=== PATIENT | male | born 1960 | race Caucasian/White ===

== ENCOUNTER 2018-10-07 00:59 | Emergency (ER) | payer BC, OTHER ==
[2018-10-07 01:29] LABS: #Eosinphils 0.2 thou/uL (0.0-0.7); #Lymphocytes 1.4 thou/uL (1.20-3.40); #Monocytes 0.3 thou/uL (0.11-0.59); #Neutrophils 2.8 thou/uL (1.40-6.50); %Basophils 0.8 % (0.0-1.0); %Eosinophils 3.9 % (0.0-10.0); %Lymphocytes 29.1 % (21.0-51.0); %Monocytes 6.4 % (0.0-10.0); %Neutrophils 59.8 % (42.0-75.0); Hemoglobin 14.4 g/dL (14.0-18.0); Mean Corpuscular HGB CONC 35.1 g/dL (32.0-36.0); Mean Corpuscular Hemoglobin 30.5 pg (27.0-31.0); Mean Corpuscular Volume 86.9 fL (78.0-98.0); Mean Platelet Volume 6.7 fL (7.4-10.4); Platelet Count 172 thou/uL (130-400); RBC Distribution Width 12.4 % (11.5-14.5); Red Blood Cell (RBC) Count 4.73 mill/uL (4.70-6.10); White Blood Cell (WBC) Count 4.6 thou/uL (4.8-10.8)
[2018-10-07 01:51] LABS: ALT (SGPT) 41 U/L (8-55); AST (SGOT) 30 U/L (5-34); Albumin 4.5 g/dL (3.5-5.0); Alkaline Phosphatase 48 U/L (40-150); Anion Gap 13 mmol/L (10-20); BUN (Urea Nitrogen) 12 mg/dL (8.4-25.7); Bilirubin, Total 0.5 mg/dL (0.2-1.2); Calc. Creatinine Clearance 0 mL/min (70-130); Calcium 9.9 mg/dL (7.8-10.44); Carbon Dioxide 29 mmol/L (22-29); Chloride 104 mmol/L (98-107); Estimated GFR-MDRD Greater than 90; Globulin 2.7 g/dL (2.4-3.5); Glucose 128 mg/dL (70-105); Lipase 29 U/L (8-78); Potassium 3.7 mmol/L (3.5-5.1); Protein, Total 7.2 g/dL (6.0-8.3); Sodium 142 mmol/L (136-145)
[2018-10-07] MEDS ORDERED: Ketorolac Tromethamine 30 MG/ML VIAL ONE (03:16)
[2018-10-07] MEDS ORDERED: Morphine 4 MG/ML VIAL ONE (03:16)
--- NOTE | 2018-10-07 09:17 | ULT ---
PRELIMINARY REPORT: US Abdomen Limited, Right Upper Quadrant EXAM DATE/TIME: 10/07/2018 3:28 AM CLINICAL HISTORY: 58 years old, male; Other: Epigastric pain TECHNIQUE: Imaging protocol: Real-time ultrasound of the abdomen with image documentation. Examination was focused on the right upper quadrant. COMPARISON: No relevant prior studies available. FINDINGS: Liver: Hepatic steatosis. Gallbladder: Gallstone at the neck of the gallbladder. Gallbladder sludge. No gallbladder wall thickening or pericholecystic fluid. Sonographic Edmonds sign reported as "negative but patient medicated." Common bile duct: Normal. No stones. No dilation. Pancreas: Visualized pancreas is unremarkable. Right kidney: Normal. No mass. No hydronephrosis. IMPRESSION: Cholelithiasis and gallbladder sludge. No evidence of cholecystitis. Thank you for allowing us to participate in the care of your patient. Dictated and Authenticated by: Ernesto Becker MD 10/07/2018 4:08 AM Central Time ([place] & [place]) FINAL REPORT Fibrofatty changes seen in the liver. The gallbladder contains echogenic foci as well as a area of hyperechogenicity in the gallbladder nec k compatible with gallstones. The gallbladder wall is not significantly thickened. No evidence of pericholecystic fluid seen. Common bile duct is of normal size measuring 4 mm. No evidence of intrahepatic biliary dilatation seen. The right kidney is unremarkable. Visualized portions of the pancreas unremarkable. IMPRESSION: Cholelithiasis. QA Transcribed Date/Time: 10/07/2018 4:15 PM
== END 2018-10-07 05:09 | disposition home or self-care (01) ==
LOC: ERS 00:59
DX: K80.20 Calculus of gallbladder without cholecystitis without obstruction (principal); I10 Essential (primary) hypertension
CPT/HCPCS: 36415; 76705; 80053; 83690; 85025; 93005; 96372; 96374; 96375; J0500; J1885; J2270

== ENCOUNTER 2018-10-18 15:11 | Outpatient (CLI) | payer OTHER ==
[2018-10-18 16:41] LABS: #Basophils 0.1 thou/uL (0.0-0.2); #Eosinphils 0.3 thou/uL (0.0-0.7); #Lymphocytes 1.8 thou/uL (1.20-3.40); #Monocytes 0.5 thou/uL (0.11-0.59); %Basophils 1.4 % (0.0-1.0); %Eosinophils 4.8 % (0.0-10.0); %Lymphocytes 32.5 % (21.0-51.0); %Monocytes 8.1 % (0.0-10.0); %Neutrophils 53.2 % (42.0-75.0); Hemoglobin 14.4 g/dL (14.0-18.0); Mean Corpuscular HGB CONC 34.7 g/dL (32.0-36.0); Mean Corpuscular Hemoglobin 30.4 pg (27.0-31.0); Mean Corpuscular Volume 87.6 fL (78.0-98.0); Mean Platelet Volume 7.1 fL (7.4-10.4); Platelet Count 276 thou/uL (130-400); RBC Distribution Width 11.9 % (11.5-14.5); Red Blood Cell (RBC) Count 4.73 mill/uL (4.70-6.10); White Blood Cell (WBC) Count 5.5 thou/uL (4.8-10.8)
[2018-10-18 17:04] LABS: ALT (SGPT) 25 U/L (8-55); AST (SGOT) 18 U/L (5-34); Albumin 4.2 g/dL (3.5-5.0); Alkaline Phosphatase 63 U/L (40-150); Anion Gap 12 mmol/L (10-20); BUN (Urea Nitrogen) 12 mg/dL (8.4-25.7); Bilirubin, Total 0.6 mg/dL (0.2-1.2); Calc. Creatinine Clearance 0 mL/min (70-130); Calcium 9.7 mg/dL (7.8-10.44); Carbon Dioxide 28 mmol/L (22-29); Chloride 104 mmol/L (98-107); Estimated GFR-MDRD Greater than 90; Globulin 2.8 g/dL (2.4-3.5); Glucose 96 mg/dL (70-105); Potassium 3.7 mmol/L (3.5-5.1); Sodium 140 mmol/L (136-145)
== END 2018-10-18 15:12 | disposition home or self-care (01) ==
LOC: LABBT 15:11
PROVIDERS: ATTEND Surgery
DX: Z01.812 Encounter for preprocedural laboratory examination (principal); K80.20 Calculus of gallbladder without cholecystitis without obstruction
CPT/HCPCS: 80053; 85025

== ENCOUNTER 2018-10-23 10:00 | Day surgery (SDC) | payer OTHER ==
[2018-10-18 15:36] VITALS: BMI 31.1
[2018-10-23] MEDS ORDERED: Bupivacaine/Epinephrine 0.25% 30 ML VIAL ONE (12:35)
[2018-10-23] MEDS ORDERED: Fentanyl 100 MCG/2 ML VIAL ONE (13:08)
[2018-10-23] MEDS ORDERED: Midazolam HCl 2 mg/2 ml Vial ONE (13:27)
[2018-10-23] MEDS ORDERED: Rocuronium Bromide 10 MG/ML (10ML VIAL) ONE (13:29)
[2018-10-23] MEDS ORDERED: Ketorolac Tromethamine 30 MG/ML VIAL ONE (13:29)
[2018-10-23] MEDS ORDERED: Glycopyrrolate 0.2 MG/ML 5 ML SYRINGE ONE (13:29)
[2018-10-23] MEDS ORDERED: Ondansetron PF 4 MG/2 ML Vial ONE (13:29)
[2018-10-23] MEDS ORDERED: PROPOFOL 200 MG/20 ML VIAL ONE (13:29)
[2018-10-23] MEDS ORDERED: Dexamethasone 20 MG/5 ML VIAL ONE (13:29)
[2018-10-23] MEDS ORDERED: Lidocaine 1% PF 5 ML VIAL ONE (13:29)
[2018-10-23] MEDS ORDERED: ePHEDrine 50 MG/ML VIAL ONE (13:29)
--- NOTE | 2018-10-24 12:07 | OP ---
DATE OF PROCEDURE: 10/23/2018 PROCEDURES: Laparoscopic cholecystectomy and repair of umbilical hernia. PREOPERATIVE DIAGNOSES: 1. Cholelithiasis. 2. Cholecystitis. 3. Umbilical hernia. POSTOPERATIVE DIAGNOSES: 1. Cholelithiasis. 2. Cholecystitis. 3. Umbilical hernia. FINDINGS: Very inflamed, thickened, necrotic gallbladder with extensive omental adhesions; small, less than 1 cm umbilical hernia containing preperitoneal fat. HISTORY: Mr. Lacy is a 58-year-old man, recently diagnosed with gallstones. Recommendation was made to proceed with laparoscopic cholecystectomy for symptomatic relief. He was incidentally noted to have a small reducible umbilical hernia and was recommended that this DESCRIPTION OF PROCEDURE: After informed consent was obtained, appropriate preoperative antibiotics were administered, the patient was taken to the operating room where he was placed in supine position and general endotracheal anesthesia was administered. He was prepped and draped in a standard sterile fashion and local anesthesia was infused through the skin and subcutaneous tissues at the level of the umbilicus. A skin incision was made and dissection was carried down to the fascial defect which was less than a finger tip in size. The fascia was elevated and Veress needle was placed through the defect and carbon dioxide gas was insufflated to an intraabdominal pressure of 15 mmHg, which the patient tolerated well. The Veress needle was then withdrawn and a 5 mm port was placed through the fascial defect using a ClearView port under direct laparoscopic vision, intraabdominal contents were carefully examined. There was no evidence of trocar or Veress needle injury. The gallbladder was local anesthesia was infused through the skin and subcutaneous tissues of the epigastric, right upper quadrant, and right lateral abdominal site. Skin incisions were made and trocars were placed under direct laparoscopic vision. The omentum was dissected down off the gallbladder through the avascular plane using careful electrocautery. The edge of the transverse colon was identified and care was taken not use any electrocautery in this region. The fundus was able to be exposed, identified, grasped, and retracted superiorly. The remainder of the omentum was stripped downward and the infundibulum identified, grasped and retracted laterally. The serosa was stripped inferiorly at the level of the neck of the gallbladder with some difficulty due to severe fibrosis at this level. The cystic duct and artery were able to be identified, dissected free circumferentially and traced to their insertion in the gallbladder. Critical view of safety was obtained and the duct and artery were clipped and divided between clips. The gallbladder was then dissected free of the gallbladder bed using hook electrocautery, again with moderate to severe difficulty due to the fibrosis in the gallbladder wall. At several points, the was off the gallbladder bed, but bleeding from the gallbladder was able to easily controlled with electrocautery. The gallbladder was then completely removed from the gallbladder bed, placed into an EndoCatch bag, and drawn out through the epigastric incision, which did require elevation of the fascia and extension of the skin secondary to severe edema and fibrosis in the thickened gallbladder wall. The epigastric trocar was then replaced and the operative site was easily irrigated to clear. Hemostasis was verified and was subsequently deemed to be in good position. The epigastric trocar was removed and the fascial incision closed with 0 Vicryl suture on GraNee needle with excellent technical result. This suture, however, was not tied down; rather it was secured and the epigastric trocar replaced. The umbilical trocar was then removed, and the fascial defect closed under direct vision with 0 Vicryl suture on a GraNee needle under direct vision. Following this, the right upper quadrant and right lateral trocars removed, and hemostasis verified at those sites. The epigastric trocar was then used to desufflate the abdomen following which the specimen was removed and both the umbilical and epigastric fascial sutures were secured. Additional local anesthesia was infused for postoperative pain control. The skin incision was closed with 4-0 subcuticular Monocryl suture. ESTIMATED BLOOD LOSS: Minimal. COMPLICATIONS: There were no complications. SPECIMEN: Gallbladder and contents. Job ID: [id number]
== END 2018-10-23 17:43 | disposition home or self-care (01) ==
LOC: SDC 10:00
PROVIDERS: ATTEND Surgery
PROC: 0FT44ZZ Resection of Gallbladder, Percutaneous Endoscopic Approach (ICD-10-PCS; principal; 2018-10-23)
PROC: 0WQF0ZZ Repair Abdominal Wall, Open Approach (ICD-10-PCS; principal; 2018-10-23)
DX: K80.00 Calculus of gallbladder with acute cholecystitis without obstruction (principal); K82.8 Other specified diseases of gallbladder; K42.9 Umbilical hernia without obstruction or gangrene; I10 Essential (primary) hypertension; Z79.899 Other long term (current) drug therapy
CPT/HCPCS: 88304; J0690; J1100; J1885; J2001; J2250; J2405; J2704; J3010; J3490

== ENCOUNTER 2020-02-15 14:51 | Inpatient (IN) | payer OTHER ==
--- NOTE | 2020-02-15 15:17 | RAD ---
PORTABLE CHEST: 02/15/20 HISTORY: Chest pain. Lungs are clear. No infiltrate or vascular congestion. Heart size is normal. IMPRESSION: No acute process. POS: AGW
[2020-02-15 15:22] LABS: #Basophils 0.1 thou/uL (0.0-0.2); #Eosinphils 0.2 thou/uL (0.0-0.7); #Lymphocytes 1.1 thou/uL (1.20-3.40); #Monocytes 0.4 thou/uL (0.11-0.59); #Neutrophils 3.1 thou/uL (1.40-6.50); %Basophils 1.1 % (0.0-1.0); %Eosinophils 3.6 % (0.0-10.0); %Lymphocytes 22.4 % (21.0-51.0); Hemoglobin 15.9 g/dL (14.0-18.0); Mean Corpuscular HGB CONC 35.2 g/dL (32.0-36.0); Mean Corpuscular Hemoglobin 31.2 pg (27.0-31.0); Mean Corpuscular Volume 88.7 fL (78.0-98.0); Platelet Count 162 thou/uL (130-400); RBC Distribution Width 12.7 % (11.5-14.5); Red Blood Cell (RBC) Count 5.08 mill/uL (4.70-6.10); White Blood Cell (WBC) Count 4.9 thou/uL (4.8-10.8)
[2020-02-15] MEDS ORDERED: Aspirin Chewable 81 MG TAB ONE (15:33)
[2020-02-15] MEDS ORDERED: Nitroglycerin 2% Ointment 1 INCH/1 GM Packet ONE (15:33)
[2020-02-15 15:36] LABS: ALT (SGPT) 30 U/L (8-55); AST (SGOT) 27 U/L (5-34); Albumin 4.5 g/dL (3.5-5.0); Alkaline Phosphatase 49 U/L (40-110); Anion Gap 15 mmol/L (10-20); BUN (Urea Nitrogen) 13 mg/dL (8.4-25.7); Bilirubin, Total 0.7 mg/dL (0.2-1.2); CK (CPK) 289 U/L (30-200); Calc. Creatinine Clearance 0 mL/min (70-130); Calcium 9.3 mg/dL (7.8-10.44); Carbon Dioxide 24 mmol/L (22-29); Chloride 106 mmol/L (98-107); Estimated GFR-MDRD Greater than 90; Globulin 2.7 g/dL (2.4-3.5); Glucose 118 mg/dL (70-105); Lipase 54 U/L (8-78); Potassium 3.6 mmol/L (3.5-5.1); Protein, Total 7.2 g/dL (6.0-8.3); Sodium 141 mmol/L (136-145)
[2020-02-15 16:15] LABS: CKMB 16.9 ng/mL (0-6.6)
--- NOTE | 2020-02-15 16:24 | PDOC.HHP ---
Hospitalist HPI - History of Present Illness Chest pain History of Present Illness: Is a 59-year-old male patient you have a history of hypertension who presents today with complaints of chest pain for the past 2 to 3 days. Pain is intermittent, described as heaviness about 5/10 in intensity and usually occurs with meals. Rarely associated if activity. He has associated diaphoresis however no nausea. Pain appears to radiate to his right but not to his back. He has a history of hypertension for which he is on olmesartan. He does not smoke but however dips tobacco and has no family history of early OH. Also no history of diabetes mellitus. He denies any recent upper respiratory symptoms, no recent long distance travel or sedentary lifestyle of personal or family history of thrombosis. He also denies any recent history of chest trauma Today the pain became increasingly worse leading him to come to the ED. On presentation he was started on aspirin and was about to be given nitroglycerin however his pain subsided and this was held. Initial troponin was 0.24, EKG showed ST segment depressions in V2 V3, chest x- ray was unremarkable Hospitalist team was consulted to admit. Hospitalist ROS - Review of Systems Constitutional: denies: fever, chills, sweats, weakness Respiratory: denies: cough, dry, shortness of breath, hemoptysis, SOB with excertion Cardiovascular: denies: palpitations, orthopnea, paroxysmal noc. dyspnea, edema Gastrointestinal: denies: nausea, vomiting, abdominal pain, diarrhea Genitourinary: denies: dysuria, frequency, incontinence, hematuria Neurological: denies: weakness, numbness, incoordination, change in speech Hospitalist History - Past Medical History Cardiac: reports: HTN Other Medical History: Medications: Benicar HCTolmesartan tablet : Strength - 40 mg-12.5 mg : ORAL Patient Dose: 40 mg Oral once a day. Allergies: No known allergies - Past Surgical History Other Surgical History: None - Family History Family History: reports: diabetes mellitus, hypertension - Social History Smoking Status: Former smoker (Currently dips tobacco) Tobacco Type: chewing tobacco Alcohol: reports: None Drugs: reports: none Living Situation: With Family Activity level: independent ambulation - Exam General - other findings: Patient awake and alert. In no distress. Neck - other findings: No JVD, no lymphadenopathy Heart - other findings: S1-S2 present. No murmurs gallops or rubs. Respiratory - other findings: Air entry adequate bilaterally, no wheezes rhonchi or rales. Gastrointestinal - other findings: Full, soft, bowel sounds present and normal. Nontender nondistended Extremities - other findings: No edema no cyanosis Neurological: cranial nerve grossly intact, no new deficit Hospitalist Results - Labs Result Diagrams: 02/15/20 18:35 02/15/20 15:00 Lab results: WBC 4.9 thou/uL (4.8-10.8) 02/15/20 15:00 Hgb 15.9 g/dL (14.0-18.0) 02/15/20 15:00 Hct 45.1 % (42.0-52.0) 02/15/20 15:00 MCV 88.7 fL (78.0-98.0) 02/15/20 15:00 Plt Count 162 thou/uL (130-400) 02/15/20 15:00 Neutrophils % 64.0 % (42.0-75.0) 02/15/20 15:00 Sodium 141 mmol/L (136-145) 02/15/20 15:00 Potassium 3.6 mmol/L (3.5-5.1) 02/15/20 15:00 Chloride 106 mmol/L (98-107) 02/15/20 15:00 Carbon Dioxide 24 mmol/L (22-29) 02/15/20 15:00 BUN 13 mg/dL (8.4-25.7) 02/15/20 15:00 Creatinine 0.84 mg/dL (0.7-1.3) 02/15/20 15:00 Glucose 118 mg/dL (70-105) H 02/15/20 15:00 Calcium 9.3 mg/dL (7.8-10.44) 02/15/20 15:00 Total Bilirubin 0.7 mg/dL (0.2-1.2) 02/15/20 15:00 AST 27 U/L (5-34) 02/15/20 15:00 ALT 30 U/L (8-55) 02/15/20 15:00 Alkaline Phosphatase 49 U/L (40-110) 02/15/20 15:00 Creatine Kinase 289 U/L (30-200) H 02/15/20 15:00 CK-MB (CK-2) 16.9 ng/mL (0-6.6) H* 02/15/20 15:00 Troponin I 0.247 ng/mL (< 0.028) H 02/15/20 15:00 Serum Total Protein 7.2 g/dL (6.0-8.3) 02/15/20 15:00 Albumin 4.5 g/dL (3.5-5.0) 02/15/20 15:00 Lipase 54 U/L (8-78) 02/15/20 15:00 Hospitalist H&P A/P - Plan Plan: This is a 59-year-old male patient with a history of hypertension who presents with chest pain of 2 to 3 days duration. Troponin is elevated and ST changes concerning for ACS We will admit him for observation on telemetry unit and await cardiology evaluation NSTEMI Received aspirin in EDwe will continue PRN nitroglycerin Start Lovenox 1 mg/kg every 12 Trend troponin Consult cardiology. Hypertension Resume home olmesartan once verified. Tobacco abuse Consider nicotine patch if show signs of withdrawal DVT prophylaxistherapeutic on Lovenox Dispositionpending cardiology evaluation
[2020-02-15] MEDS ORDERED: Nitroglycerin 0.4 MG TAB (25 Tab Bottle) PO PRN (17:03)
[2020-02-15] MEDS ORDERED: Heparin 25,000 units/D5W 500 ML IVPB SCH (17:15)
[2020-02-15] MEDS ORDERED: Heparin 10,000 UNITS/ 10 ML VIAL SLOW IVP SCH (17:15)
[2020-02-15 17:38] VITALS: BMI 32.5
[2020-02-15 18:49] LABS: Hemoglobin 15.1 g/dL (14.0-18.0); Platelet Count 176 thou/uL (130-400)
[2020-02-15 19:21] LABS: Troponin I 0.362 ng/mL (< 0.028)
[2020-02-15 19:27] LABS: Hemoglobin A1c 4.9 % (4.0-6.0)
[2020-02-15] MEDS: Nicotine 14 MG PATCH TD SCH (19:43)
[2020-02-15] MEDS: Enoxaparin Sodium 100 MG/ML SYRINGE SC SCH (19:47)
[2020-02-15] MEDS: Nitroglycerin 2% Ointment 1 INCH/1 GM Packet TOP SCH (19:47)
[2020-02-15] MEDS: Rosuvastatin 20 MG TAB PO SCH (19:58)
[2020-02-15 21:43] LABS: Troponin I 0.579 ng/mL (< 0.028)
[2020-02-16 05:20] LABS: #Basophils 0.1 thou/uL (0.0-0.2); #Eosinphils 0.3 thou/uL (0.0-0.7); #Monocytes 0.5 thou/uL (0.11-0.59); #Neutrophils 3.3 thou/uL (1.40-6.50); %Basophils 0.9 % (0.0-1.0); %Eosinophils 4.4 % (0.0-10.0); %Lymphocytes 32.8 % (21.0-51.0); %Monocytes 8.6 % (0.0-10.0); %Neutrophils 53.3 % (42.0-75.0); Hemoglobin 14.4 g/dL (14.0-18.0); Mean Corpuscular HGB CONC 34.4 g/dL (32.0-36.0); Mean Corpuscular Hemoglobin 30.5 pg (27.0-31.0); Mean Corpuscular Volume 88.5 fL (78.0-98.0); Mean Platelet Volume 7.2 fL (7.4-10.4); Platelet Count 161 thou/uL (130-400); RBC Distribution Width 12.6 % (11.5-14.5); Red Blood Cell (RBC) Count 4.74 mill/uL (4.70-6.10); White Blood Cell (WBC) Count 6.1 thou/uL (4.8-10.8)
[2020-02-16 05:44] LABS: Anion Gap 13 mmol/L (10-20); BUN (Urea Nitrogen) 13 mg/dL (8.4-25.7); Calc. Creatinine Clearance 175 mL/min (70-130); Calcium 8.7 mg/dL (7.8-10.44); Carbon Dioxide 24 mmol/L (22-29); Cardiac Risk 5.5 (Less than 4.5); Chloride 107 mmol/L (98-107); Cholesterol 175 mg/dl (< 200 Desired); Estimated GFR-MDRD Greater than 90; Glucose 114 mg/dL (70-105); HDL Cholesterol 32 mg/dL (>60 Neg Risk); LDL Cholesterol, Calculated 96 mg/dL; Potassium 3.6 mmol/L (3.5-5.1); Sodium 140 mmol/L (136-145); Triglycerides 236 mg/dL (Less than 150)
[2020-02-16] MEDS: Nitroglycerin 2% Ointment 1 INCH/1 GM Packet TOP SCH ×3 (06:19→20:56)
[2020-02-16 07:07] LABS: Troponin I 0.877 ng/mL (< 0.028)
[2020-02-16] MEDS: Enoxaparin Sodium 100 MG/ML SYRINGE SC SCH ×2 (07:56→20:54)
[2020-02-16] MEDS: Aspirin Chewable 81 MG TAB PO SCH (07:57)
[2020-02-16] MEDS ORDERED: Olmesartan 5 MG TAB PO SCH (09:00)
[2020-02-16] MEDS ORDERED: Communication Order-Pharmacy FS SCH (09:00)
--- NOTE | 2020-02-16 09:57 | CON ---
DATE OF CONSULTATION: 02/16/2020 REASON FOR CONSULTATION: [id number] myocardial infarction. HISTORY OF PRESENT ILLNESS: Regino is a very pleasant 59-year-old gentleman. The patient has been having lower substernal chest pain. The patient's pain began 2 days prior to admission, but it is relatively mild. Yesterday, he had an episode in the morning and then later in the afternoon. He came to the hospital, found to have slightly increased troponin levels. He has been given enoxaparin, aspirin, and nitrates, so he had very minimal discomfort early this morning. Otherwise, he has been feeling much better. He is asymptomatic now. No previous cardiac history. The patient does not smoke. He does chew tobacco. ALLERGIES: NONE KNOWN. SOCIAL HISTORY: As outlined above. REVIEW OF SYSTEMS: CONSTITUTIONAL: No significant weight gain. No loss of vision. No changes in hearing. PULMONARY: No cough or wheezing. GASTROINTESTINAL: No nausea, vomiting, or diarrhea. SKIN: No rashes. NEUROLOGIC: No unilateral weakness or numbness. PSYCHIATRIC: No unusual depression or anxiety. HEMATOLOGIC: No unusual bruising. MEDICATIONS: At home, he takes olmesartan/hydrochlorothiazide. PHYSICAL EXAMINATION: GENERAL: This is a 59-year-old man, in no distress, resting comfortably. No chest pain. VITAL SIGNS: Blood pressure 149/78, pulse 56 and regular. HEENT: Eyes; sclerae nonicteric. Mouth; mucous membranes moist. NECK: Supple. No lymphadenopathy. LUNGS: Clear. CARDIAC: Normal S1, normal S2. There is no murmur, rub, or gallop. ABDOMEN: Soft and nontender. No hepatosplenomegaly. EXTREMITIES: Warm, dry. No clubbing or cyanosis. No edema. Good dorsalis pedis pulses bilaterally. LABORATORY DATA: EKG, normal sinus rhythm, some very minimal nonspecific changes in lead II and aVF. Cardiac enzymes, the peak troponin 0.877. LDL cholesterol was 96. ASSESSMENT: 1. Status post [id number] myocardial infarction. 2. Tobacco use. 3. Hyperlipidemia with increased triglycerides and LDL cholesterol of 96, suspect the LDL was probably higher the day before he did receive one dose of statins. 4. Hypertension. PLAN: Proceed to cardiac catheterization tomorrow. Discussed risks of stroke, heart attack, iodine allergy, loss of blood supply to leg or kidney, stent thrombosis, stent restenosis, life-threatening problem such as vessel perforation in the heart arteries. The patient understands and wishes to proceed. Job ID: [id number]
[2020-02-16] MEDS: Losartan 25 MG TAB PO SCH (10:17)
[2020-02-16 12:44] LABS: SARS-CoV-2 MS2 Positive; SARS-CoV-2 N Gene Negative; SARS-CoV-2 S Gene Negative; SARS-CoV-2 by NAA Not Detected (NotDetected); SARS-CoV-2 orf1ab Negative
[2020-02-16] MEDS: Nicotine 14 MG PATCH TD SCH (18:50)
[2020-02-16] MEDS: Rosuvastatin 20 MG TAB PO SCH (20:55)
--- NOTE | 2020-02-16 21:38 | PDOC.HOSPP ---
- Subjective Encounter Date: 02/16/20 Encounter Time: 11:00 Subjective: Patient was seen and examined in bed. He denies any chest pain or shortness of breath. No acute events overnight. - Objective Vital Signs & Weight: Vital Signs (12 hours) Temp Pulse Resp BP BP Pulse Ox 02/16/20 19:30 97.4 F L 54 L 20 166/83 H 97 02/16/20 15:32 98.5 F 56 L 20 143/71 H 97 02/16/20 11:45 97.8 F 68 16 145/73 H 97 Weight Weight 240 lb 1.6 oz I&O: 02/15/20 02/16/20 02/17/20 06:59 06:59 06:59 Intake Total 900 1080 Balance 900 1080 Result Diagrams: 02/16/20 04:44 02/16/20 04:44 Hospitalist ROS - Medication Medications: Active Medications Generic Name Dose Route Start Last Admin Trade Name Freq PRN Reason Stop Dose Admin Aspirin 81 mg 02/16/20 09:00 02/16/20 07:57 Aspirin Chewable PO 81 mg DAILY CULLEN Administration Enoxaparin Sodium 100 mg 02/15/20 21:00 02/16/20 20:54 Lovenox SC 100 mg 0900,2100 CULLEN Administration Losartan Potassium 50 mg 02/16/20 09:00 02/16/20 10:17 Cozaar PO 50 mg DAILY CULLEN Administration Nicotine 14 mg 02/15/20 18:00 02/16/20 18:50 Nicoderm Patch TD Not Given 1800 CULLEN Nitroglycerin 0.5 inch 02/15/20 22:00 02/16/20 20:56 Nitro-Bid 2% Ointment TOP 0.5 inch Q8HR CULLEN Administration Rosuvastatin Calcium 40 mg 02/15/20 21:00 02/16/20 20:55 Crestor PO 40 mg HS CULLEN Administration - Exam General - other findings: Patient is in bed. No acute distress. Heart - other findings: S1-S2 present and normal. No murmurs gallops or rubs. Respiratory - other findings: Air entry adequate bilaterally Gastrointestinal - other findings: Grossly benign Extremities: no edema Hosp A/P - Plan This is a 59-year-old man with a history of hypertension mated on account of NSTEMI. He has been stable and comfortable overnight on therapeutic dose of Lovenox. Cardiology followingplan for cardiac catheterization tomorrow. NSTEMI Possible cath tomorrow. Convert from outpatient inpatient. Continue monitoring. Hypertension Blood pressure stable We will continue monitoring. Tobacco abuse Continue monitoring. Next VTE prophylaxistherapeutic Lovenox
[2020-02-17] MEDS: Nitroglycerin 2% Ointment 1 INCH/1 GM Packet TOP SCH (05:55)
[2020-02-17] MEDS ORDERED: Sodium Chloride 0.9% 1,000 ML IV SCH (06:00)
[2020-02-17] MEDS ORDERED: Diazepam 5 MG TAB PO SCH (06:00)
[2020-02-17] MEDS: Losartan 25 MG TAB PO SCH (06:06)
[2020-02-17] MEDS: Aspirin Chewable 81 MG TAB PO SCH (06:06)
[2020-02-17] MEDS ORDERED: Nitroglycerin 100MG/250ML BOT 0 ML ONE (06:34)
[2020-02-17] MEDS ORDERED: Midazolam HCl 2 mg/2 ml Vial ONE (07:36)
[2020-02-17] MEDS ORDERED: Nitroglycerin 4.9 GM Bottle ONE (07:52)
[2020-02-17] MEDS: Enoxaparin Sodium 100 MG/ML SYRINGE SC SCH (07:59)
[2020-02-17] MEDS ORDERED: Nitroglycerin 0.4 MG TAB (25 Tab Bottle) SL PRN (08:16)
[2020-02-17] MEDS ORDERED: Acetaminophen/Codeine 30-300mg Tablet PO PRN ×2 (08:16)
[2020-02-17] MEDS ORDERED: Sodium Chloride 0.9% 200 ML IV PRN (08:16)
[2020-02-17] MEDS ORDERED: Olmesartan 5 MG TAB PO SCH (09:00)
[2020-02-17] MEDS ORDERED: Losartan 25 MG TAB PO SCH ×2 (09:00→14:30)
[2020-02-17] MEDS ORDERED: Iopamidol 370 76% 100 ML VIAL ONE (12:08)
--- NOTE | 2020-02-17 12:20 | PDOC.HOSPP ---
- Subjective Encounter Date: 02/17/20 Encounter Time: 11:00 Subjective: Patient was seen and examined in bed. Just had cardiac catheterization and was comfortable. He denied any chest pain or shortness of breath. - Objective Vital Signs & Weight: Vital Signs (12 hours) Temp Pulse Resp BP BP Pulse Ox 02/17/20 11:03 63 18 132/67 99 02/17/20 08:21 98.1 F 63 20 147/80 H 98 02/17/20 04:50 97.9 F 58 L 20 147/82 H 97 02/17/20 03:42 97 Weight Weight 240 lb 1.6 oz I&O: 02/16/20 02/17/20 02/18/20 06:59 06:59 06:59 Intake Total 900 1380 Balance 900 1380 Result Diagrams: 02/16/20 04:44 02/16/20 04:44 Hospitalist ROS - Medication Medications: Active Medications Generic Name Dose Route Start Last Admin Trade Name Freq PRN Reason Stop Dose Admin Aspirin 81 mg 02/16/20 09:00 02/17/20 06:06 Aspirin Chewable PO 81 mg DAILY CULLEN Administration Diazepam 5 mg 02/17/20 06:00 02/17/20 06:32 Valium PO 5 mg WILLCALL CULLEN Administration Sodium Chloride 1,000 mls @ 100 mls/hr 02/17/20 06:00 02/17/20 05:54 Normal Saline 0.9% IV 02/17/20 14:00 1,000 mls .Q10H CULLEN Administration Isosorbide Mononitrate 60 mg 02/17/20 12:00 02/17/20 11:46 Imdur PO 60 mg 1200 CULLNE Administration Losartan Potassium 100 mg 02/17/20 09:00 02/17/20 08:46 Cozaar PO Not Given DAILY CULLEN Nicotine 14 mg 02/15/20 18:00 02/16/20 18:50 Nicoderm Patch TD Not Given 1800 CULLEN Rosuvastatin Calcium 40 mg 02/15/20 21:00 02/16/20 20:55 Crestor PO 40 mg HS CULLEN Administration Sodium Chloride 10 ml 02/17/20 09:00 02/17/20 08:46 Flush - Normal Saline IVF Not Given Q12HR CULLEN - Exam General - other findings: Patient lying in bed. In no acute distress. Heart - other findings: S1-S2 are present and normal. No murmurs gallops or rubs. Respiratory - other findings: Air entry adequate bilaterally. No wheeze or rhonchi Gastrointestinal - other findings: Full, soft, nontender bowel sounds present and normal. No organomegaly. Extremities - other findings: No edema Neurological: cranial nerve grossly intact, no focal deficits Hosp A/P - Plan This is a 59-year-old man with a history of hypertension admitted on account of NSTEMI. Was on therapeutic dose of Lovenox Currently status post catheterizationawaiting cardiology report. NSTEMI Status post cardiac catheterization. We will continue Crestor and aspirin Appreciate cardiology input. Hypertension Blood pressure stable We will continue monitoring. Tobacco abuse Continue monitoring. Next VTE prophylaxistherapeutic Lovenox
[2020-02-17] MEDS ORDERED: Clopidogrel Bisulfate 300 MG TAB PO SCH (14:00)
[2020-02-17 17:19] LABS: Hemoglobin 14.4 g/dL (14.0-18.0); Platelet Count 158 thou/uL (130-400)
[2020-02-17] MEDS: Nicotine 14 MG PATCH TD SCH (18:04)
[2020-02-17] MEDS: Rosuvastatin 20 MG TAB PO SCH (20:58)
[2020-02-18 04:59] LABS: Hemoglobin 13.5 g/dL (14.0-18.0); Platelet Count 149 thou/uL (130-400)
[2020-02-18] MEDS: Aspirin Chewable 81 MG TAB PO SCH (08:34)
[2020-02-18] MEDS ORDERED: Losartan 25 MG TAB PO SCH (09:00)
[2020-02-18] MEDS ORDERED: Clopidogrel Bisulfate 75 MG TAB PO SCH (09:00)
[2020-02-18 12:24] VITALS: TEMP 97.6
[2020-02-18] MEDS ORDERED: Amlodipine 5 MG TAB PO SCH (13:30)
--- NOTE | 2020-02-18 14:23 | PRG ---
DATE OF SERVICE: 02/18/2020 SUBJECTIVE: Mr. Lacy is out walking in the hook, feels well. No chest pain or pressure. OBJECTIVE: VITAL SIGNS: Blood pressure is somewhat elevated at 149/69, earlier this morning it was 118/60. Pulse 54. LUNGS: Clear. CARDIAC: Normal S1, normal S2. ABDOMEN: Soft and nontender. EXTREMITIES: There is no edema. ASSESSMENT: 1. Status post [id number] myocardial infarction. 2. Occluded circumflex with collateralization, mid circumflex. 3. 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 4. Hypertension. 5. Hypercholesterolemia. PLAN: 1. He is going to go home on amlodipine 2.5 mg a day. 2. Olmesartan 40 mg a day. 3. Aspirin 81 mg a day. 4. Plavix 75 mg a day. 5. Nitroglycerin if needed. 6. Imdur 60 mg a day. 7. See us in the office in a couple of weeks. If needed, could increase amlodipine. Cannot use beta blockers currently due to bradycardia. Also has been started on rosuvastatin 40 mg a day. Job ID: [id number]
[2020-02-18 15:57] VITALS: BP 128/70
[2020-02-19] MEDS ORDERED: Losartan 25 MG TAB PO SCH (09:00)
[2020-02-19] MEDS ORDERED: Amlodipine 5 MG TAB PO SCH (09:00)
== END 2020-02-18 16:08 | disposition home or self-care (01) | DRG 282 ==
LOC: ERS 14:51 → 2SW 16:22 → OBSVTOIN 16:22
PROVIDERS: ADMIT Student in an Organized Health Care Education/Training Program; ATTEND Student in an Organized Health Care Education/Training Program
PROC: 4A023N7 Measurement of Cardiac Sampling and Pressure, Left Heart, Percutaneous Approach (ICD-10-PCS; principal; 2020-02-17)
PROC: B2111ZZ Fluoroscopy of Multiple Coronary Arteries using Low Osmolar Contrast (ICD-10-PCS; 2020-02-17)
PROC: B2151ZZ Fluoroscopy of Left Heart using Low Osmolar Contrast (ICD-10-PCS; 2020-02-17)
DX: I21.4 Non-ST elevation (NSTEMI) myocardial infarction (principal); I10 Essential (primary) hypertension; F17.210 Nicotine dependence, cigarettes, uncomplicated; E78.5 Hyperlipidemia, unspecified; E78.00 Pure hypercholesterolemia, unspecified; I25.10 Atherosclerotic heart disease of native coronary artery without angina pectoris; Z20.828 Contact with and (suspected) exposure to other viral communicable diseases; Z79.899 Other long term (current) drug therapy
CPT/HCPCS: 36415; 71045; 76942; 80048; 80053; 80061; 82550; 82553; 83036; 83690; 84484; 85014; 85018; 85025; 85049; 85730; 87635; 93005; 93458; 93798; 94760; 97139; 99152; 99153; J1644; J1650; J2250; Q9967; U0003

== ENCOUNTER 2020-10-23 08:24 | Observation (INO) | payer BC, OTHER ==
[2020-10-23] MEDS ORDERED: cefTRIAXone\\ROCEPHIN 1 GM VIAL ONE (08:53)
[2020-10-23 09:42] LABS: Hemoglobin 13.9 g/dL (14.0-18.0); Mean Corpuscular HGB CONC 34.7 g/dL (32.0-36.0); Mean Corpuscular Hemoglobin 30.3 pg (27.0-31.0); Mean Corpuscular Volume 87.3 fL (78.0-98.0); RBC Distribution Width 12.8 % (11.5-14.5); Red Blood Cell (RBC) Count 4.58 mill/uL (4.70-6.10); White Blood Cell (WBC) Count 6.1 thou/uL (4.8-10.8)
[2020-10-23 09:43] LABS: ALT (SGPT) 33 U/L (8-55); AST (SGOT) 22 U/L (5-34); Alkaline Phosphatase 39 U/L (40-110); Anion Gap 13 mmol/L (10-20); BUN (Urea Nitrogen) 12 mg/dL (8.4-25.7); Bilirubin, Total 0.9 mg/dL (0.2-1.2); Calc. Creatinine Clearance 0 mL/min (70-130); Calcium 9.1 mg/dL (7.8-10.44); Carbon Dioxide 26 mmol/L (22-29); Chloride 103 mmol/L (98-107); Globulin 2.6 g/dL (2.4-3.5); Glucose 130 mg/dL (70-105); Potassium 3.5 mmol/L (3.5-5.1); Protein, Total 6.6 g/dL (6.0-8.3); Sodium 138 mmol/L (136-145)
[2020-10-23 09:56] LABS: #Lymphocytes 0.6 thou/uL (1.20-3.40); #Monocytes 0.4 thou/uL (0.11-0.59); %Basophils 0.1 % (0.0-1.0); %Eosinophils 0.3 % (0.0-10.0); %Monocytes 6.7 % (0.0-10.0); %Neutrophils 82.9 % (42.0-75.0); Platelet Count 104 thou/uL (130-400); Platelet Morphology Comment Appears Decreased; RBC Morphology Normal
[2020-10-23] MEDS ORDERED: Acetaminophen 650 MG Suppository PR PRN (11:17)
[2020-10-23] MEDS ORDERED: Acetaminophen 325 MG TAB PO PRN (11:17)
[2020-10-23] MEDS ORDERED: Enoxaparin Sodium 40 MG/0.4 ML SYRINGE SC SCH (11:30)
[2020-10-23 11:40] LABS: Hemoglobin A1c 4.9 % (4.0-6.0)
[2020-10-23 14:49] VITALS: BMI 32.8
[2020-10-23 20:56] LABS: SARS-CoV-2 PCR by NAA Not Detected (NotDetected)
[2020-10-23] MEDS ORDERED: Rosuvastatin 20 MG TAB PO SCH (21:00)
[2020-10-24 07:09] LABS: #Eosinphils 0.2 thou/uL (0.0-0.7); #Monocytes 0.5 thou/uL (0.11-0.59); #Neutrophils 2.4 thou/uL (1.40-6.50); %Basophils 1.1 % (0.0-1.0); %Eosinophils 3.7 % (0.0-10.0); %Lymphocytes 24.7 % (21.0-51.0); %Monocytes 11.5 % (0.0-10.0); Hemoglobin 12.9 g/dL (14.0-18.0); Mean Corpuscular HGB CONC 33.3 g/dL (32.0-36.0); Mean Corpuscular Hemoglobin 29.3 pg (27.0-31.0); Mean Corpuscular Volume 88.1 fL (78.0-98.0); Mean Platelet Volume 7.2 fL (7.4-10.4); Platelet Count 111 thou/uL (130-400); White Blood Cell (WBC) Count 4.1 thou/uL (4.8-10.8)
[2020-10-24 07:24] LABS: Anion Gap 10 mmol/L (10-20); BUN (Urea Nitrogen) 12 mg/dL (8.4-25.7); Calc. Creatinine Clearance 184 mL/min (70-130); Calcium 8.8 mg/dL (7.8-10.44); Carbon Dioxide 28 mmol/L (22-29); Chloride 106 mmol/L (98-107); Glucose 122 mg/dL (70-105); Potassium 3.7 mmol/L (3.5-5.1); Sodium 140 mmol/L (136-145)
[2020-10-24] MEDS ORDERED: Amlodipine 5 MG TAB PO SCH (09:00)
[2020-10-24] MEDS ORDERED: Clopidogrel Bisulfate 75 MG TAB PO SCH (09:00)
[2020-10-24] MEDS ORDERED: Enoxaparin Sodium 40 MG/0.4 ML SYRINGE SC SCH (09:00)
[2020-10-24] MEDS ORDERED: cefTRIAXone\\ROCEPHIN 1 GM in Sodium Chloride 0.9% 100 ML IVPB SCH (09:00)
[2020-10-24 15:59] VITALS: BP 126/76; TEMP 98.4
== END 2020-10-24 15:59 | disposition home or self-care (01) ==
LOC: ERS 08:24 → T4-A 10:47
PROVIDERS: ADMIT Internal Medicine; ATTEND Internal Medicine
DX: L03.116 Cellulitis of left lower limb (principal); I10 Essential (primary) hypertension; E78.5 Hyperlipidemia, unspecified; I25.10 Atherosclerotic heart disease of native coronary artery without angina pectoris; Z79.899 Other long term (current) drug therapy; Z20.822 Contact with and (suspected) exposure to COVID-19
CPT/HCPCS: 36415; 80048; 80053; 83036; 83605; 85025; 85379; 87040; 87635; 96365; 96366; 96372; 96376; G0378; J0696; J1650; J3490; U0003; U0005

== ENCOUNTER 2022-05-12 09:20 | Outpatient (CLI) | payer BC | END 2022-05-12 09:21 | disposition home or self-care (01) | LOC: LABBT 09:20 | PROVIDERS: ATTEND Orthopaedic Surgery | DX: Z01.818 Encounter for other preprocedural examination (principal); M17.11 Unilateral primary osteoarthritis, right knee | CPT/HCPCS: 71046; 87081; 93005; 93010 ==

== ENCOUNTER 2022-05-16 06:47 | Observation (INO) | payer BC ==
[2022-05-12 11:00] LABS: Bilirubin Neg (Negative); Blood, Urine Negative (Negative); Clarity Clear (Clear); Glucose, Urine (Dipstick) Normal (Negative); Ketone, Urine Negative (Negative); Leukocyte Negative (Negative); Nitrite Negative (Negative); Protein, Urine (Dipstick) Negative (Neg-Trace); Urobilinogen Normal mg/dL (Less than 2)
[2022-05-12 11:10] LABS: #Basophils 0.1 10x3/uL (0.0-0.2); #Eosinphils 0.3 10x3/uL (0.0-0.5); #Monocytes 0.4 10x3/uL (0.0-1.1); #Neutrophils 2.2 10x3/uL (1.5-8.4); %Basophils 1.3 % (0.0-2.0); %Eosinophils 6.7 % (0.0-6.0); %Lymphocytes 33.5 % (18.0-47.0); %Monocytes 8.8 % (0.0-10.0); %Neutrophils 48.8 % (40.0-75.0); Hemoglobin 14.7 g/dL (13.5-17.5); Mean Corpuscular HGB CONC 34.8 g/dL (32.0-36.0); Mean Corpuscular Hemoglobin 29.8 pg (27.0-33.0); Mean Corpuscular Volume 85.6 fl (81.2-95.1); Mean Platelet Volume 9.3 fl (7.4-10.4); Platelet Count 165 10x3/uL (150-450); RBC Distribution Width 13.5 % (11.5-14.5); Red Blood Cell (RBC) Count 4.94 10x6/uL (4.32-5.72); White Blood Cell (WBC) Count 4.5 10x3/uL (3.5-10.5)
[2022-05-12 11:37] LABS: Anion Gap 14 mmol/L (10-20); BUN (Urea Nitrogen) 15 mg/dL (8.4-25.7); Calc. Creatinine Clearance 0 mL/min (70-130); Calcium 9.7 mg/dL (7.8-10.44); Carbon Dioxide 25 mmol/L (22-29); Chloride 107 mmol/L (98-107); Estimated GFR 102; Glucose 112 mg/dL (70-105); Potassium 4.2 mmol/L (3.5-5.1); Sodium 142 mmol/L (136-145)
[2022-05-13 13:46] VITALS: BMI 36.9
[2022-05-16] MEDS ORDERED: Tranexamic Acid 1,000 MG/10 ML VIAL ONE ×2 (07:23→11:58)
[2022-05-16] MEDS ORDERED: Sodium Chloride 0.9% 100 ML ONE ×2 (07:23→09:30)
[2022-05-16] MEDS ORDERED: VANCOMYCIN 2 GRAM/500 ML BAG 2 GM in Premix Bag 1 BAG IVPB SCH (07:30)
[2022-05-16] MEDS ORDERED: FENTANYL 50 MCG/ML 1 ML VIAL ONE ×3 (08:03→13:04)
[2022-05-16] MEDS ORDERED: Midazolam HCl 2 mg/2 ml Vial ONE (08:03)
[2022-05-16] MEDS ORDERED: Bupivacaine PF 0.5% 30 ML VIAL ONE ×2 (08:03→09:15)
[2022-05-16 08:24] LABS: SARS-CoV-2 NAA Rapid Test Not Detected (NotDetected)
[2022-05-16] MEDS ORDERED: EPINEPHrine 1 MG/ML AMP ONE (08:45)
[2022-05-16] MEDS ORDERED: FENTANYL 50 MCG/ML 1 ML VIAL SLOW IVP PRN (09:19)
[2022-05-16] MEDS ORDERED: fentaNYL PF 100 MCG/2 ML SYRINGE ONE ×2 (09:25→10:10)
[2022-05-16] MEDS ORDERED: Ondansetron PF 4 MG/2 ML Vial IVP PRN ×2 (09:30→11:35)
[2022-05-16] MEDS ORDERED: Zolpidem Tartrate 5 MG TAB PO PRN ×2 (09:30→11:35)
[2022-05-16] MEDS ORDERED: CEFAZOLIN 2 GM VIAL ONE (09:30)
[2022-05-16] MEDS ORDERED: Promethazine HCl 25 MG/ML VIAL IM PRN ×3 (09:30→11:35)
[2022-05-16] MEDS ORDERED: Ropivacaine 0.2% 550 ML 550 ML NERVE BLCK SCH (09:30)
[2022-05-16] MEDS ORDERED: HYDROcodone/Acetaminophen 10/325 mg Tablet PO PRN (09:30)
[2022-05-16] MEDS ORDERED: traMADol HCl 50 MG TAB PO PRN ×2 (09:30)
[2022-05-16] MEDS ORDERED: Dexamethasone 20 MG/5 ML VIAL ONE (09:40)
[2022-05-16] MEDS ORDERED: PROPOFOL 200 MG/20 ML VIAL ONE (09:40)
[2022-05-16] MEDS ORDERED: Ondansetron PF 4 MG/2 ML Vial ONE ×2 (09:40→11:54)
[2022-05-16] MEDS ORDERED: ePHEDrine 50 MG/ML VIAL ONE (09:40)
[2022-05-16] MEDS ORDERED: Promethazine HCl 25 MG/ML VIAL IVPB PRN (11:33)
[2022-05-16] MEDS ORDERED: HYDROmorphone 2 MG/ML VIAL SLOW IVP PRN (11:33)
[2022-05-16] MEDS ORDERED: Ondansetron HCl/PF 4 MG/2 ML Vial IVP PRN (11:33)
[2022-05-16] MEDS ORDERED: Acetaminophen 325 MG TAB PO PRN (11:35)
[2022-05-16] MEDS ORDERED: diphenhydrAMINE 25 MG CAP PO PRN (11:35)
[2022-05-16] MEDS ORDERED: Nitroglycerin 0.4 MG TAB (25 Tab Bottle) SL PRN (11:36)
[2022-05-16] MEDS ORDERED: Tranexamic Acid 1,000 MG in Sodium Chloride 0.9% 100 ML IVPB SCH (11:45)
[2022-05-16] MEDS: Ketorolac Tromethamine 30 MG/ML VIAL IVP SCH ×3 (12:05→23:09)
[2022-05-16] MEDS: CEFAZOLIN 2 GM in Sodium Chloride 0.9% 100 ML IVPB SCH (18:14)
[2022-05-16] MEDS: Sodium Chloride 0.9% 1,000 ML IV SCH ×2 (18:15→23:40)
[2022-05-16] MEDS ORDERED: Aspirin 81 mg Enteric Coated Tablet PO SCH (21:00)
[2022-05-16] MEDS ORDERED: Ezetimibe 10 MG TAB PO SCH (21:00)
[2022-05-16] MEDS ORDERED: Rosuvastatin 20 MG TAB PO SCH (21:00)
[2022-05-16] MEDS: Ferrous Gluconate 324 MG TAB PO SCH (22:44)
[2022-05-16] MEDS: Senokot S 8.6-50 MG TAB PO SCH (22:44)
[2022-05-16] MEDS: HYDROcodone/Acetaminophen 10/325 mg Tablet PO PRN (22:45)
[2022-05-17] MEDS: CEFAZOLIN 2 GM in Sodium Chloride 0.9% 100 ML IVPB SCH (02:59)
[2022-05-17] MEDS: Ketorolac Tromethamine 30 MG/ML VIAL IVP SCH (05:35)
[2022-05-17 06:31] LABS: Hemoglobin 13.1 g/dL (14.0-18.0); Mean Corpuscular HGB CONC 33.6 g/dL (32.0-36.0); Mean Corpuscular Hemoglobin 30.1 pg (27.0-31.0); Mean Corpuscular Volume 89.5 fl (78.0-98.0); Platelet Count 156 10x3/uL (130-400); RBC Distribution Width 12.9 % (11.5-14.5); Red Blood Cell (RBC) Count 4.34 mill/uL (4.70-6.10); White Blood Cell (WBC) Count 8.8 10x3/uL (4.8-10.8)
[2022-05-17] MEDS ORDERED: Hydrochlorothiazide 25 MG TAB PO SCH (09:00)
[2022-05-17] MEDS ORDERED: Clopidogrel Bisulfate 75 MG TAB PO SCH (09:00)
[2022-05-17] MEDS ORDERED: Aspirin Chewable 81 MG TAB PO SCH (09:00)
[2022-05-17] MEDS ORDERED: Loratadine 10 MG TAB PO SCH (09:00)
[2022-05-17] MEDS ORDERED: Losartan 25 MG TAB PO SCH (09:00)
[2022-05-17] MEDS ORDERED: Multivitamin W/ Minerals 1 TAB PO SCH (09:00)
[2022-05-17] MEDS ORDERED: Amlodipine 5 MG TAB PO SCH (09:00)
[2022-05-17] MEDS: Senokot S 8.6-50 MG TAB PO SCH (09:15)
[2022-05-17] MEDS: Ferrous Gluconate 324 MG TAB PO SCH (09:15)
[2022-05-17] MEDS: HYDROcodone/Acetaminophen 10/325 mg Tablet PO PRN (10:56)
[2022-05-17] MEDS: Sodium Chloride 0.9% 1,000 ML IV SCH (10:58)
[2022-05-17 12:36] VITALS: BP 162/75; TEMP 97.1
== END 2022-05-17 14:03 | disposition home or self-care (01) ==
LOC: SDC 06:47 → EDSTATUS 09:15 → SJJU 13:33
PROVIDERS: ADMIT Orthopaedic Surgery; ATTEND Orthopaedic Surgery
PROC: 0SRC0J9 Replacement of Right Knee Joint with Synthetic Substitute, Cemented, Open Approach (ICD-10-PCS; principal; 2022-05-16)
DX: M17.31 Unilateral post-traumatic osteoarthritis, right knee (principal); I10 Essential (primary) hypertension; I25.2 Old myocardial infarction; Z79.82 Long term (current) use of aspirin; Z79.899 Other long term (current) drug therapy; Z20.822 Contact with and (suspected) exposure to COVID-19
CPT/HCPCS: 36415; 80048; 81003; 85025; 85027; 85610; 86850; 86900; 86901; 96365; 96367; 96375; 96376; A4306; C1713; C1776; G0378; J0171; J1100; J1885; J2250; J2405; J2704; J2795; J3010; J3370; J3490; J7030; J7050; S0020; U0002

== ENCOUNTER 2022-12-13 18:59 | Emergency (ER) | payer BC, SELFPAY | END 2022-12-13 21:17 | disposition home or self-care (01) | LOC: ERS 18:59 | DX: L03.116 Cellulitis of left lower limb (principal); I10 Essential (primary) hypertension; E78.5 Hyperlipidemia, unspecified | CPT/HCPCS: 99283 ==

== ENCOUNTER 2023-03-19 09:21 | Emergency (ER) | payer BC ==
[2023-03-19] MEDS ORDERED: cefTRIAXone (ROCEPHIN) 2 GM VIAL ONE (09:49)
[2023-03-19 10:00] LABS: #Eosinphils 0.1 thou/uL (0.0-0.7); #Monocytes 0.4 thou/uL (0.11-0.59); #Neutrophils 3.4 thou/uL (1.40-6.50); %Basophils 0.8 % (0.0-1.0); %Eosinophils 1.9 % (0.0-10.0); %Lymphocytes 17.3 % (21.0-51.0); %Monocytes 8.1 % (0.0-10.0); %Neutrophils 71.5 % (42.0-75.0); Hematocrit 41.9 % (42.0-52.0); Hemoglobin 14.3 g/dL (14.0-18.0); Mean Corpuscular HGB CONC 34.1 g/dL (32.0-36.0); Mean Corpuscular Hemoglobin 29.1 pg (27.0-31.0); Mean Corpuscular Volume 85.2 fl (78.0-98.0); Mean Platelet Volume 9.3 fL (7.4-10.4); Platelet Count 140 10x3/uL (130-400); RBC Distribution Width 14.6 % (11.5-14.5); Red Blood Cell (RBC) Count 4.92 mill/uL (4.70-6.10); White Blood Cell (WBC) Count 4.8 10x3/uL (4.8-10.8)
[2023-03-19] MEDS ORDERED: VANCOMYCIN 2 GRAM/500 ML BAG 2 GM in Premix Bag 1 BAG IVPB SCH (10:00)
[2023-03-19 10:19] LABS: ALT (SGPT) 32 U/L (8-55); AST (SGOT) 21 U/L (5-34); Albumin 4.7 g/dL (3.4-4.8); Alkaline Phosphatase 40 U/L (40-110); Anion Gap 13 mmol/L (10-20); BUN (Urea Nitrogen) 11 mg/dL (8.4-25.7); Bilirubin, Total 0.5 mg/dL (0.2-1.2); Calc. Creatinine Clearance 176 mL/min (70-130); Calcium 9.7 mg/dL (7.8-10.44); Carbon Dioxide 26 mmol/L (23-31); Chloride 104 mmol/L (98-107); Estimated GFR 100; Globulin 2.6 g/dL (2.4-3.5); Glucose 140 mg/dL (80-115); Potassium 3.5 mmol/L (3.5-5.1); Protein, Total 7.3 g/dL (5.8-8.1); Sodium 139 mmol/L (136-145)
== END 2023-03-19 12:26 | disposition home or self-care (01) ==
LOC: ERS 09:21
DX: L03.116 Cellulitis of left lower limb (principal); I10 Essential (primary) hypertension; E78.5 Hyperlipidemia, unspecified; Z79.82 Long term (current) use of aspirin; Z79.899 Other long term (current) drug therapy
CPT/HCPCS: 80053; 83605; 85025; 87040; 96365; 96366; 96375; J0696; J3370

== ENCOUNTER 2023-07-31 08:19 | Outpatient (CLI) | payer BC ==
[2023-07-31 09:54] LABS: #Basophils 0.1 10x3/uL (0.0-0.2); #Eosinphils 0.3 10x3/uL (0.0-0.5); #Monocytes 0.4 10x3/uL (0.0-1.1); #Neutrophils 1.7 10x3/uL (1.5-8.4); %Basophils 1.2 % (0.0-2.0); %Eosinophils 8.2 % (0.0-6.0); %Lymphocytes 36.7 % (18.0-47.0); %Neutrophils 43.2 % (40.0-75.0); Hematocrit 42.3 % (38.8-50.0); Hemoglobin 14.6 g/dL (13.5-17.5); Mean Corpuscular HGB CONC 34.5 g/dL (32.0-36.0); Mean Corpuscular Hemoglobin 29.6 pg (27.0-33.0); Mean Corpuscular Volume 85.6 fl (81.2-95.1); Mean Platelet Volume 9.3 fl (7.4-10.4); Platelet Count 153 10x3/uL (150-450); RBC Distribution Width 13.7 % (11.5-14.5); Red Blood Cell (RBC) Count 4.94 10x6/uL (4.32-5.72)
[2023-07-31 10:38] LABS: INR-International Normal Ratio 1.1; Prothrombin Time 11.3 sec (9.5-12.1)
[2023-07-31 10:48] LABS: ALT (SGPT) 45 U/L (8-55); AST (SGOT) 32 U/L (5-34); Albumin 4.5 g/dL (3.4-4.8); Alkaline Phosphatase 45 U/L (40-110); Anion Gap 14 mmol/L (10-20); BUN (Urea Nitrogen) 13 mg/dL (8.4-25.7); Bilirubin, Total 0.7 mg/dL (0.2-1.2); Calc. Creatinine Clearance 0 mL/min (70-130); Carbon Dioxide 25 mmol/L (23-31); Cardiac Risk 3.4 (Less than 4.5); Chloride 105 mmol/L (98-107); Cholesterol 133 mg/dl (< 200 Desired); Estimated GFR 99; Globulin 2.3 g/dL (2.4-3.5); Glucose 121 mg/dL (80-115); HDL Cholesterol 39 mg/dL (>60 Neg Risk); LDL Cholesterol, Calculated 57 mg/dL; Potassium 3.9 mmol/L (3.5-5.1); Protein, Total 6.8 g/dL (5.8-8.1); Sodium 140 mmol/L (136-145); Triglycerides 185 mg/dL (Less than 150)
== END 2023-07-31 08:20 | disposition home or self-care (01) ==
LOC: LABBT 08:19
PROVIDERS: ATTEND Orthopaedic Surgery
DX: Z01.818 Encounter for other preprocedural examination (principal); T84.092A Other mechanical complication of internal right knee prosthesis, initial encounter
CPT/HCPCS: 80053; 80061; 85025; 85610; 87081; 93005; 93010

== ENCOUNTER 2023-07-31 08:30 | Inpatient (IN) | payer BC ==
[2023-07-31 09:09] VITALS: BMI 37.8
[2023-08-02] MEDS ORDERED: Tranexamic Acid 1,000 MG/10 ML VIAL ONE ×2 (05:51→06:56)
[2023-08-02] MEDS ORDERED: Sodium Chloride 0.9% 100 ML ONE ×2 (05:51→06:56)
[2023-08-02] MEDS ORDERED: CEFAZOLIN 2 GM in Sodium Chloride 0.9% 100 ML IVPB SCH (06:00)
[2023-08-02] MEDS ORDERED: Vancomycin (BATCH) 2 GM in Premix 1 BAG IVPB SCH (06:00)
[2023-08-02] MEDS ORDERED: Vancomycin 1 GM VIAL ONE (06:27)
[2023-08-02] MEDS ORDERED: EPINEPHrine 1 MG/ML VIAL ONE ×2 (06:27→06:48)
[2023-08-02] MEDS ORDERED: Tobramycin Sulfate 1.2 GM VIAL ONE (06:27)
[2023-08-02] MEDS ORDERED: Bupivacaine PF 0.5% 30 ML VIAL ONE ×2 (06:28→06:48)
[2023-08-02] MEDS ORDERED: Midazolam HCl 2 mg/2 ml Vial ONE (06:48)
[2023-08-02] MEDS ORDERED: fentaNYL 50 mcg/mL 1 mL Vial ONE ×4 (06:48→09:08)
[2023-08-02] MEDS ORDERED: CEFAZOLIN 2 GM VIAL ONE (06:56)
[2023-08-02] MEDS ORDERED: PROPOFOL 20 ML ONE (07:11)
[2023-08-02] MEDS ORDERED: Ondansetron PF 4 MG/2 ML Vial ONE (07:12)
[2023-08-02] MEDS ORDERED: Lidocaine 1% PF 5 ML VIAL ONE (07:12)
[2023-08-02] MEDS ORDERED: fentaNYL 50 mcg/mL 1 mL Vial SLOW IVP PRN (07:44)
[2023-08-02] MEDS ORDERED: traMADol HCl 50 MG TAB PO PRN ×2 (07:45)
[2023-08-02] MEDS ORDERED: Promethazine HCl 25 MG/ML VIAL IM PRN ×2 (07:45→08:35)
[2023-08-02] MEDS ORDERED: Zolpidem Tartrate 5 MG TAB PO PRN ×2 (07:45→08:35)
[2023-08-02] MEDS ORDERED: Ropivacaine 0.2% 550 ML 550 ML NERVE BLCK SCH (07:45)
[2023-08-02] MEDS ORDERED: Ondansetron PF 4 MG/2 ML Vial IVP PRN ×2 (07:45→08:35)
[2023-08-02] MEDS ORDERED: diphenhydrAMINE 25 MG CAP PO PRN (08:35)
[2023-08-02] MEDS ORDERED: Acetaminophen 325 MG TAB PO PRN (08:35)
[2023-08-02] MEDS ORDERED: NITROGLYCERIN 0.4 MG SL PRN (08:36)
[2023-08-02] MEDS ORDERED: Nitroglycerin 0.4 MG TAB (25 Tab Bottle) SL PRN (08:59)
[2023-08-02] MEDS ORDERED: Aspirin Chewable 81 MG TAB PO SCH (09:00)
[2023-08-02] MEDS ORDERED: RANOLAZINE 500 MG PO SCH (09:00)
[2023-08-02] MEDS ORDERED: Cetirizine HCl 10 MG TAB PO SCH (09:00)
[2023-08-02] MEDS ORDERED: Non-Formulary Item 1 EACH (Magnesium Oxide [Magnesium] 400 MG Tablet) PO SCH (09:00)
[2023-08-02] MEDS ORDERED: Non-Formulary Item 1 EACH (Zinc Sulfate [Zinc] 50 MG Tablet) PO SCH (09:00)
[2023-08-02] MEDS: Sodium Chloride 0.9% 1,000 ML IV SCH (10:54)
[2023-08-02] MEDS: Loratadine 10 MG TAB PO SCH (10:57)
[2023-08-02] MEDS: Magnesium Oxide 400 MG TAB PO SCH (10:57)
[2023-08-02] MEDS: Multivitamin W/ Minerals 1 TAB PO SCH (10:57)
[2023-08-02] MEDS: Aspirin 81 mg Enteric Coated Tablet PO SCH (10:57)
[2023-08-02] MEDS: Calcium Carbonate 600 MG + Vit D TAB PO SCH (10:57)
[2023-08-02] MEDS: Ferrous Gluconate 324 MG TAB PO SCH (10:57)
[2023-08-02] MEDS: Ranolazine ER 500 MG TAB PO SCH (10:58)
[2023-08-02] MEDS: Senokot S 8.6-50 MG TAB PO SCH (10:58)
[2023-08-02] MEDS: Isosorbide Mononitrate 60 MG ER.TAB PO SCH (12:05)
[2023-08-02] MEDS: Amlodipine 5 MG TAB PO SCH (12:05)
[2023-08-02] MEDS: Ketorolac Tromethamine 30 MG (1 mL) VIAL IVP SCH (12:06)
[2023-08-02] MEDS: HYDROcodone/Acetaminophen 10/325 mg Tablet PO PRN (12:08)
[2023-08-02] MEDS: CEFAZOLIN 2 GM in Sodium Chloride 0.9% 100 ML IVPB SCH (14:31)
[2023-08-02] MEDS: Ezetimibe 10 MG TAB PO SCH (21:23)
[2023-08-02] MEDS: Rosuvastatin 20 MG TAB PO SCH (21:37)
[2023-08-03 05:15] LABS: Hematocrit 37.3 % (42.0-52.0); Hemoglobin 12.5 g/dL (14.0-18.0); Mean Corpuscular HGB CONC 33.5 g/dL (32.0-36.0); Mean Corpuscular Volume 89.4 fl (78.0-98.0); Mean Platelet Volume 9.5 fL (7.4-10.4); Platelet Count 136 10x3/uL (130-400); RBC Distribution Width 14.1 % (11.5-14.5); Red Blood Cell (RBC) Count 4.17 mill/uL (4.70-6.10); White Blood Cell (WBC) Count 5.1 10x3/uL (4.8-10.8)
[2023-08-03 07:46] VITALS: BP 163/93; TEMP 97.8
[2023-08-03] MEDS: Losartan 25 MG TAB PO SCH (07:56)
[2023-08-03] MEDS: Hydrochlorothiazide 25 MG TAB PO SCH (07:57)
[2023-08-03] MEDS: Zinc Sulfate 220 MG CAP PO SCH (07:58)
[2023-08-03] MEDS: HYDROcodone/Acetaminophen 10/325 mg Tablet PO PRN (12:01)
== END 2023-08-03 12:12 | disposition home or self-care (01) | DRG 468 ==
LOC: SURG A 08-02 05:35 → SJJU 08-02 11:13
PROVIDERS: ADMIT Orthopaedic Surgery; ATTEND Orthopaedic Surgery
PROC: 0SWV0JZ Revision of Synthetic Substitute in Right Knee Joint, Tibial Surface, Open Approach (ICD-10-PCS; principal; 2023-08-02)
DX: T84.092A Other mechanical complication of internal right knee prosthesis, initial encounter (principal); I10 Essential (primary) hypertension; Z79.82 Long term (current) use of aspirin; Z98.890 Other specified postprocedural states; Z79.899 Other long term (current) drug therapy; Z90.49 Acquired absence of other specified parts of digestive tract
CPT/HCPCS: 36415; 85027; A4306; J0171; J0665; J1885; J2250; J2405; J2704; J2795; J3010; J3260; J3370; J3490

== ENCOUNTER 2024-04-17 15:09 | Emergency (ER) | payer BC ==
[2024-04-17 15:57] LABS: #Basophils 0.06 10x3/uL (0.0-0.2); %Basophils 0.6 % (0.0-1.0); %Eosinophils 2.7 % (0.0-10.0); %Lymphocytes 12.5 % (21.0-51.0); %Monocytes 5.5 % (0.0-10.0); %Neutrophils 78.3 % (42.0-75.0); Hematocrit 42.9 % (42.0-52.0); Hemoglobin 14.9 g/dL (14.0-18.0); Mean Corpuscular HGB CONC 34.7 g/dL (32.0-36.0); Mean Corpuscular Hemoglobin 29.8 pg (27.0-31.0); Mean Corpuscular Volume 85.8 fL (78.0-98.0); Mean Platelet Volume 9.3 fL (7.4-10.4); Platelet Count 174 10x3/uL (130-400); RBC Distribution Width 13.3 % (11.5-14.5)
[2024-04-17 16:23] LABS: CRP,High Sensitivity (Inhouse) 0.14 mg/dL (< or = 0.5)
[2024-04-17 16:24] LABS: ALT (SGPT) 43 U/L (8-55); AST (SGOT) 31 U/L (5-34); Albumin 4.3 g/dL (3.4-4.8); Alkaline Phosphatase 47 U/L (40-110); Anion Gap 14 mmol/L (10-20); BUN (Urea Nitrogen) 18 mg/dL (8.4-25.7); Bilirubin, Total 0.5 mg/dL (0.2-1.2); Calc. Creatinine Clearance 0 mL/min (70-130); Calcium 9.7 mg/dL (7.8-10.44); Carbon Dioxide 23 mmol/L (23-31); Chloride 105 mmol/L (98-107); Estimated GFR 78; Globulin 3.3 g/dL (2.4-3.5); Glucose 115 mg/dL (80-115); Potassium 3.4 mmol/L (3.5-5.1); Protein, Total 7.6 g/dL (5.8-8.1); Sodium 139 mmol/L (136-145)
[2024-04-17] MEDS ORDERED: Sodium Chloride 0.9% 100 ML ONE (18:24)
[2024-04-17] MEDS ORDERED: Ondansetron PF 4 MG/2 ML Vial ONE (18:24)
[2024-04-17] MEDS ORDERED: cefTRIAXone (ROCEPHIN) 2 GM VIAL ONE (18:24)
[2024-04-17] MEDS ORDERED: Vancomycin (BATCH) 2 GM in Premix 1 BAG IVPB SCH (18:30)
== END 2024-04-17 20:43 | disposition home or self-care (01) ==
LOC: ERS 15:09
DX: L03.116 Cellulitis of left lower limb (principal); I10 Essential (primary) hypertension; I25.2 Old myocardial infarction; Z95.5 Presence of coronary angioplasty implant and graft
CPT/HCPCS: 36415; 80053; 83605; 85025; 86141; 96374; 96375; J0696; J2405; J3370